=== PATIENT | male | born 1995 | race Caucasian/White ===

== ENCOUNTER 2017-09-24 21:52 | Emergency (ER) | payer MEDICAID ==
[2017-09-24 22:24] VITALS: BMI 27.9
[2017-09-24 22:26] VITALS: BP 118/72; PULSE 96; RESP 17; TEMP 99.6; O2SAT 100
[2017-09-24] MEDS ORDERED: Penicillin G Benzathine 1.2 Mill Unit/2 ml Syr IM STA (22:55)
--- NOTE | 2017-09-24 23:16 | ED PDOC ---
Arrival/HPI - General Chief Complaint: Weakness/Neurological Deficit Time Seen by Provider: 09/24/17 22:55 Historian: Patient - History of Present Illness Narrative History of Present Illness (Text): 09/24/17 23:05 22yo male with no past medical history who present with complaint of sore throat. States he is not eating well secondary to the pain. States he feels dehydrated secondary to decrease appetite and decrease intake. He otherwise denies abdominal pain, fever, chills, dysphagia, drooling, hoarseness, nausea, vomiting, neck pain, any other complaint. Past Medical History - Provider Review Nursing Documentation Reviewed: Yes - Past History Past History: No Previous - Infectious Disease Hx of Infectious Diseases: None - Tetanus Immunization Tetanus Immunization: Unknown - Psychiatric Hx Psychophysiologic Disorder: No Hx Substance Use: No - Surgical History Hx Orthopedic Surgery: Yes (Right hand surgery) - Suicidal Assessment Feels Threatened In Home Enviroment: No Family/Social History - Physician Review Nursing Documentation Reviewed: Yes Family/Social History: Unknown Family HX Smoking Status: Never Smoked Hx Alcohol Use: No Hx Substance Use: No Hx Substance Use Treatment: No Allergies/Home Meds Allergies/Adverse Reactions: Allergies No Known Allergies Allergy (Verified 09/24/17 22:29) Review of Systems - Physician Review All systems were reviewed & negative as marked: Yes - Review of Systems Constitutional: Normal Eyes: Normal ENT: Sore Throat Respiratory: Normal Cardiovascular: Normal Gastrointestinal: Normal Genitourinary Male: Normal Musculoskeletal: Myalgias Skin: Normal Neurological: Normal Endocrine: Normal Hemo/Lymphatic: Normal Psychiatric: Normal Physical Exam Vital Signs Reviewed: Yes Vital Signs Temp Pulse Resp BP Pulse Ox 09/24/17 22:25 99.6 F 96 H 17 118/72 100 Temperature: Afebrile Blood Pressure: Normal Pulse: Regular Respiratory Rate: Normal Appearance: Positive for: Well-Appearing, Non-Toxic, Comfortable Pain Distress: None Mental Status: Positive for: Alert and Oriented X 3 - Systems Exam Head: Present: Atraumatic, Normocephalic Pupils: Present: PERRL Extroacular Muscles: Present: EOMI Conjunctiva: Present: Normal Mouth: Present: Moist Mucous Membranes Pharnyx: Present: ERYTHEMA, EXUDATE, TONSILS ENLARGED. No: Peritonsilar Swelling, Uvular Deviation, Muffled/Hoarse Voice, Strider Neck: Present: Normal Range of Motion Respiratory/Chest: Present: Clear to Auscultation, Good Air Exchange. No: Respiratory Distress, Accessory Muscle Use Cardiovascular: Present: Regular Rate and Rhythm, Normal S1, S2. No: Murmurs Abdomen: No: Tenderness, Distention, Peritoneal Signs Back: Present: Normal Inspection Upper Extremity: Present: Normal Inspection. No: Cyanosis, Edema Lower Extremity: Present: Normal Inspection. No: Edema Neurological: Present: GCS=15, CN II-XII Intact, Speech Normal Skin: Present: Warm, Dry, Normal Color. No: Rashes Psychiatric: Present: Alert, Oriented x 3, Normal Insight, Normal Concentration Medical Decision Making - Medication Orders Current Medication Orders: Discontinued Medications Dexamethasone (Decadron Inj) 10 mg IM STAT STA Stop: 09/24/17 22:57 Ibuprofen (Motrin Tab) 600 mg PO STAT STA Stop: 09/24/17 22:59 Penicillin G Benzathine (Bicillin L-A Inj) 1,200,000 units IM STAT STA PRN Reason: Protocol Stop: 09/24/17 22:56 Disposition/Present on Arrival - Present on Arrival Any Indicators Present on Arrival: No History of DVT/PE: No History of Uncontrolled Diabetes: No Urinary Catheter: No History of Decub. Ulcer: No History Surgical Site Infection Following: None - Disposition Have Diagnosis and Disposition been Completed?: Yes Diagnosis: Acute tonsillitis Disposition: HOME/ ROUTINE Disposition Time: 11:20 Patient Plan: Discharge Condition: STABLE Discharge Instructions (ExitCare): Sore Throat, Adult (DC) Additional Instructions: Follow up with your Doctor/clinic Return to Emergency department for any new or worsening symptoms Prescriptions: Penicillin VK [Penicillin VK Tab] 500 mg PO TID #14 tab Referrals: Jada Barrow MD [Staff Provider] - Follow up with primary
== END 2017-09-24 23:33 | disposition home or self-care (01) ==
LOC: ED 21:52
DX: J03.90 Acute tonsillitis, unspecified (principal)
CPT/HCPCS: 96372; 99284; J0561; J1100